=== PATIENT | female | born 1950 | race Caucasian/White ===

== ENCOUNTER 2021-10-12 14:57 | Emergency (ER) | payer MEDICARE, MEDICAID ==
[~2021-10-12] VITALS: Ht 165 cm; Wt 64.0 kg
[~2021-10-12 14:57] MED LIST: ALPR.25T; ALPR.5T; OXYC30TA76; WARF7.5T PO
[2021-10-12 15:05] VITALS: BP 179/97
--- NOTE | 2021-10-12 15:23 | ED Cough/URI ---
General Chief Complaint: Cough/Cold/Flu Symptoms Stated Complaint: COVID + 09/10, CONGESTION, SOB Source: patient Exam Limitations: no limitations History of Present Illness Date Seen by Provider: Oct 12, 2021 Time Seen by Provider: 15:06 Initial Comments Patient to ER by private conveyance with chief complaint that a little over a month ago 09/10/2021 she was diagnosed with COVID-19 at the walk-in clinic. She was not started on any monoclonal antibodies. Shows a pack-year history of smoking for over 40 years. She has been trying to slow down and is down to about half a pack a day. She has a lot of anxiety. She says she gets very wheezy and has a hard time breathing especially when she lays down at night. She denies swelling in her hands or feet. She denies heart disease. She was given an albuterol inhaler doxycycline and steroids 2 weeks later when she went to [facility] urgent care. No x-ray. She says she feels like she has some fluid in her lungs but cannot get it out. She does not have a productive cough. She is not having fevers or chills. She does not have a history of swollen legs or blood clots. Allergies and Home Medications Allergies Coded Allergies: No Known Allergies (Unverified Allergy, Mild, 05/05/09) Patient Home Medication List Home Medication List Reviewed: Yes Alprazolam (Xanax) 0.5 Mg Tablet, (Reported) Entered as Reported by: SUE LAI on 05/06/09 0125 Oxycodone Hcl (Oxycontin) 30 Mg Tab.sr.12h, (Reported) Entered as Reported by: HAJA ALLEN on 05/05/09 191 Warfarin Sod (Coumadin) 7.5 Mg Tablet, 1 EACH PO DAILY, (Reported) Entered as Reported by: KELBY RICHARDSON on 11/06/09 1549 Review of Systems Review of Systems Constitutional: No chills, No fever; malaise EENTM: No ear discharge, No ear pain Respiratory: cough; No phlegm; short of breath, wheezing Cardiovascular: No chest pain, No edema, No Hx of Intervention, No palpitations, No syncope Gastrointestinal: No abdominal pain, No constipation, No diarrhea, No nausea Genitourinary: No discharge, No dysuria Musculoskeletal: No back pain, No joint pain All Other Systems Reviewed Negative Unless Noted: Yes Past Sybeqqk-Qegssz-Smksmu Hx Patient Social History Tobacco Use?: Yes Tobacco type used: Cigarettes Smoking Status: Current Everyday Smoker Use of E-Cig and/or Vaping dev: No Substance use?: No Past Medical History Reproductive Disorders: No Physical Exam Vital Signs - First Documented 10/12/21 10/12/21 15:05 15:42 Temp 36.8 Pulse 100 Resp 20 B/P (MAP) 179/97 (124) Pulse Ox 99 O2 Delivery Room Air Capillary Refill : Height: '" Weight: lbs. oz. kg; BMI Method: General Appearance: WD/WN, mild distress Eyes: Bilateral Eye Normal Inspection, Bilateral Eye PERRL, Bilateral Eye EOMI HEENT: PERRL/EOMI, pharynx normal Neck: full range of motion, supple, normal inspection Respiratory: no accessory muscle use, respiratory distress (Oxygen saturations 94% on room air, nonlabored.); No accessory muscle use; rales (Mild bilateral lower), wheezing (Expiratory mild) Cardiovascular: normal peripheral pulses, regular rate, rhythm, tachycardia Gastrointestinal: normal bowel sounds, non tender, soft Extremities: non-tender, normal inspection, normal capillary refill Neurologic/Psychiatric: alert, normal mood/affect, oriented x 3 Skin: normal color, warm/dry Progress/Results/Core Measures Suspected Sepsis SIRS Temperature: Pulse: Respiratory Rate: Laboratory Tests 10/12/21 15:20: White Blood Count 9.7 Blood Pressure / Mean: Laboratory Tests 10/12/21 15:20: Creatinine 0.94, INR Comment 0.9, Platelet Count 251, Total Bilirubin 0.6 Results/Orders Lab Results Laboratory Tests Test 10/12/21 15:20 Range/Units White Blood Count 9.7 4.3-11.0 10^3/uL Red Blood Count 4.17 3.80-5.11 10^6/uL Hemoglobin 13.1 11.5-16.0 g/dL Hematocrit 38 35-52 % Mean Corpuscular Volume 90 80-99 fL Mean Corpuscular Hemoglobin 31 25-34 pg Mean Corpuscular Hemoglobin Concent 35 32-36 g/dL Red Cell Distribution Width 13.2 10.0-14.5 % Platelet Count 251 130-400 10^3/uL Mean Platelet Volume 10.4 9.0-12.2 fL Immature Granulocyte % (Auto) 1 % Neutrophils (%) (Auto) 43 42-75 % Lymphocytes (%) (Auto) 28 12-44 % Monocytes (%) (Auto) 6 0-12 % Eosinophils (%) (Auto) 22 H 0-10 % Basophils (%) (Auto) 1 0-10 % Neutrophils # (Auto) 4.2 1.8-7.8 10^3/uL Lymphocytes # (Auto) 2.7 1.0-4.0 10^3/uL Monocytes # (Auto) 0.6 0.0-1.0 10^3/uL Eosinophils # (Auto) 2.2 H 0.0-0.3 10^3/uL Basophils # (Auto) 0.1 0.0-0.1 10^3/uL Immature Granulocyte # (Auto) 0.1 0.0-0.1 10^3/uL Neutrophils % (Manual) 37 % Lymphocytes % (Manual) 32 % Monocytes % (Manual) 8 % Eosinophils % (Manual) 23 % Basophils % (Manual) 0 % Band Neutrophils 0 % Blood Morphology Comment NORMAL Prothrombin Time 12.9 12.2-14.7 SEC INR Comment 0.9 0.8-1.4 D-Dimer 0.51 H 0.00-0.49 UG/ML Sodium Level 143 135-145 MMOL/L Potassium Level 3.4 L 3.6-5.0 MMOL/L Chloride Level 107 98-107 MMOL/L Carbon Dioxide Level 22 21-32 MMOL/L Anion Gap 14 5-14 MMOL/L Blood Urea Nitrogen 6 L 7-18 MG/DL Creatinine 0.94 0.60-1.30 MG/DL Estimat Glomerular Filtration Rate 65 BUN/Creatinine Ratio 6 Glucose Level 172 H 70-105 MG/DL Calcium Level 8.9 8.5-10.1 MG/DL Corrected Calcium 8.7 8.5-10.1 MG/DL Total Bilirubin 0.6 0.1-1.0 MG/DL Aspartate Amino Transf (AST/SGOT) 28 5-34 U/L Alanine Aminotransferase (ALT/SGPT) 28 0-55 U/L Alkaline Phosphatase 66 40-136 U/L Troponin I < 0.028 <0.028 NG/ML C-Reactive Protein High Sensitivity 0.40 0.00-0.50 MG/DL B-Type Natriuretic Peptide 40.8 <100.0 PG/ML Total Protein 7.3 6.4-8.2 GM/DL Albumin 4.2 3.2-4.5 GM/DL My Orders Orders - JERRY COLEMAN Albuterol/Ipra Inhalation Soln (Duoneb I (10/12/21 15:30) Chest Pa/Lat (2 View) (10/12/21 15:17) Svn Small Volume Nebulizer (10/12/21 15:17) Cbc With Automated Diff (10/12/21 15:17) Comprehensive Metabolic Panel (10/12/21 15:17) Hs C Reactive Protein (10/12/21 15:17) Fibrin Degradation Products (10/12/21 15:17) Protime With Inr (10/12/21 15:17) Bnp Steph (10/12/21 15:23) Continuous Ekg Monitoring (10/12/21 15:23) Ekg Tracing (10/12/21 15:23) Troponin I Steph (10/12/21 15:23) Manual Differential (10/12/21 15:20) Medications Given in ED Current Medications Medications Dose Ordered Sig/Rachel Route Start Time Stop Time Status Last Admin Dose Admin Albuterol/ Ipratropium 3 ml ONCE ONCE INH 10/12/21 15:30 10/12/21 15:31 DC 10/12/21 15:42 3 ML Vital Signs/I&O 10/12/21 10/12/21 15:05 15:42 Temp 36.8 Pulse 100 Resp 20 B/P (MAP) 179/97 (124) Pulse Ox 99 O2 Delivery Room Air Capillary Refill : Progress Note : Time: 15:26 Progress Note D-dimer, troponin, EKG, two-view chest x-ray labs and CRP to rule out pneumonia blood clots or coronary disease. She is not having any chest pain. Probably she is having some post-COVID syndrome. She does have some wheezing so were going to trial a dose of DuoNeb and see if that helps better than albuterol. ECG Initial ECG Impression Date: Oct 12, 2021 Initial ECG Impression Time: 15:45 Initial ECG Rate: 87 Initial ECG Rhythm: Normal Sinus Initial ECG Intervals: Normal Initial ECG Impression: Normal Comment Normal sinus rhythm without clinically relevant ST changes. Diagnostic Imaging Diagonstic Imaging: Xray Plain Films/CT/US/NM/MRI: chest Comments [facility]. [place], [place] NAME: BARBIE AMEZCUA [facility] REC#: [id number] PT STATUS: REG ER : 1950 PHYSICIAN: JERRY COLEMAN MD ADMIT DATE: 10/12/21/ER Draft Date of Exam:10/12/21 CHEST PA/LAT (2 VIEW) Indication: Dyspnea with cough. Comparison: None. Discussion: Two views of the chest were obtained. Normal heart size. No consolidation, pleural fluid or pneumothorax. No osseous abnormality. Impression: Negative chest. Dictated on workstation # [id number] Dict: 10/12/21 1542 Trans: 10/12/21 1543 [facility] [phone] Interpreted by: JUNITO ORDAZ MD Electronically signed by: Reviewed: Reviewed by Me Departure Impression Primary Impression: Post-COVID syndrome Additional Impression: COPD exacerbation Disposition: 01 HOME, SELF-CARE Condition: Stable Departure-Patient Inst. Decision time for Depature: 17:21 Referrals: [facility] (PCP/Family) Primary Care Physician Patient Instructions: Exacerbation of COPD, Recovery After COVID-19 Add. Discharge Instructions: Your recent episode of COVID seems to have made your COPD worse. We are going to put you on some steroids and inhaler. Drink plenty of fluids. Take the steroid Dosepak as prescribed. 1 vial of DuoNeb in your nebulizer every 4 hours as needed for coughing fits, wheezing or shortness of air. Return to the ER for intractable shortness of air or other worrisome symptoms. All discharge instructions reviewed with patient and/or family. Voiced understanding. Scripts Ipratropium/Albuterol Sulfate (Iprat-Albut 0.5-3(2.5) mg/3 ml) 0.5 Mg-3 Mg (2.5 Mg Base)/3 Ml Ampul.neb 3 ML IH Q4H PRN for SHORTNESS OF BREATH, #90 EACH 0 Refills Prov: JERRY COLEMAN 10/12/21 Methylprednisolone (Methylprednisolone Dose Pack) 4 Mg Tab.ds.pk 4 MG PO UD for 6 Days, #21 PKG 0 Refills PER DOSE PACK INSTRUCTIONS Prov: JERRY COLEMAN 10/12/21 JERRY COLEMAN Oct 12, 2021 15:23
[2021-10-12 15:29] LABS: BASOPHILS # (AUTO) 0.1 10^3/uL (0.0-0.1); BASOPHILS % (AUTO) 1 % (0-10); EOSINOPHILS # (AUTO) 2.2 10^3/uL (0.0-0.3); EOSINOPHILS % (AUTO) 22 % (0-10); HEMATOCRIT 38 % (35-52); HEMOGLOBIN 13.1 g/dL (11.5-16.0); LYMPHOCYTES # (AUTO) 2.7 10^3/uL (1.0-4.0); LYMPHOCYTES % (AUTO) 28 % (12-44); MEAN CORPUSCULAR HEMOGLOBIN 31 pg (25-34); MEAN CORPUSCULAR HGB CONC 35 g/dL (32-36); MEAN CORPUSCULAR VOLUME 90 fL (80-99); MEAN PLATELET VOLUME 10.4 fL (9.0-12.2); MONOCYTES # (AUTO) 0.6 10^3/uL (0.0-1.0); MONOCYTES % (AUTO) 6 % (0-12); NEUTROPHILS # (AUTO) 4.2 10^3/uL (1.8-7.8); NEUTROPHILS % (AUTO) 43 % (42-75); PLATELET COUNT 251 10^3/uL (130-400); WHITE BLOOD COUNT 9.7 10^3/uL (4.3-11.0)
[2021-10-12] MEDS ORDERED: RT-ALBUTEROL/IPRATROPIUM 3 ML (DUONEB) VIAL INH ONE (15:30)
[2021-10-12 15:39] LABS: ALBUMIN 4.2 GM/DL (3.2-4.5); CHLORIDE 107 MMOL/L (98-107)
[2021-10-12 15:40] LABS: POTASSIUM 3.4 MMOL/L (3.6-5.0); SODIUM 143 MMOL/L (135-145)
[2021-10-12 15:41] LABS: CALCIUM 8.9 MG/DL (8.5-10.1)
[2021-10-12 15:42] LABS: GLUCOSE 172 MG/DL (70-105); TOTAL PROTEIN 7.3 GM/DL (6.4-8.2)
[2021-10-12 15:43] LABS: CARBON DIOXIDE 22 MMOL/L (21-32)
[2021-10-12 15:44] LABS: BILIRUBIN,TOTAL 0.6 MG/DL (0.1-1.0)
--- NOTE | 2021-10-12 15:44 | Diagnostic Imaging Report ---
Indication: Dyspnea with cough. Comparison: None. Discussion: Two views of the chest were obtained. Normal heart size. No consolidation, pleural fluid or pneumothorax. No osseous abnormality. Impression: Negative chest. Dictated by: Dictated on workstation # [id number]
[2021-10-12 15:46] LABS: ALKALINE PHOSPHATASE 66 U/L (40-136); CREATININE SERUM 0.94 MG/DL (0.60-1.30); GFR ESTIMATED 65
[2021-10-12 15:47] LABS: BUN/CREATININE RATIO 6
[2021-10-12 15:49] LABS: ALANINE AMINOTRANSFERASE 28 U/L (0-55)
[2021-10-12 16:04] LABS: BAND NEUTROPHILS 0 %; BASOPHILS % (MANUAL) 0 %; EOSINOPHILS % (MANUAL) 23 %; LYMPHOCYTES % (MANUAL) 32 %; MONOCYTES % (MANUAL) 8 %; NEUTROPHILS % (MANUAL) 37 %; RBC MORPH NORMAL
[2021-10-12 16:10] LABS: FIBRIN DEGRADATION PRODUCTS 0.51 UG/ML (0.00-0.49); INR 0.9 (0.8-1.4); PROTHROMBIN TIME PATIENT 12.9 SEC (12.2-14.7)
[2021-10-12] MEDS ORDERED: IPRA3AMP31 IH (17:28)
[2021-10-12] MEDS ORDERED: METH4TAB10 PO (17:28)
[2021-10-12] MEDS ORDERED: RX-IPRATROPIUM BROMIDE 0.5 MG/2.5 ML #3 (ATROVENT) IH STA (17:29)
[2021-10-12] MEDS ORDERED: RX-ALBUTEROL NEB 2.5 MG/3 ML PACK #5 IH STA (17:29)
[2021-10-12] MEDS ORDERED: methylPREDNISolone 40 MG/ML (DEPO MEDROL) VIAL IM ONE (17:30)
== END 2021-10-12 17:49 | disposition home or self-care (01) ==
LOC: EDUNIT# 14:57 → ER 15:00
DX: J44.1 Chronic obstructive pulmonary disease with (acute) exacerbation (principal); U09.9 Post COVID-19 condition, unspecified; F17.210 Nicotine dependence, cigarettes, uncomplicated
CPT/HCPCS: 36415; 71046; 80053; 83880; 84484; 85007; 85027; 85379; 85610; 86141; 93005; 94640

== ENCOUNTER 2021-11-19 23:19 | Emergency (ER) | payer MEDICARE, MEDICAID ==
[~2021-11-19 23:19] MED LIST changes: +IPRA3AMP31 IH; +METH4TAB10 PO
[2021-11-19 23:56] LABS: BASOPHILS # (AUTO) 0.1 10^3/uL (0.0-0.1); BASOPHILS % (AUTO) 1 % (0-10); EOSINOPHILS # (AUTO) 0.7 10^3/uL (0.0-0.3); EOSINOPHILS % (AUTO) 7 % (0-10); HEMATOCRIT 37 % (35-52); HEMOGLOBIN 12.8 g/dL (11.5-16.0); LYMPHOCYTES # (AUTO) 4.5 10^3/uL (1.0-4.0); LYMPHOCYTES % (AUTO) 43 % (12-44); MEAN CORPUSCULAR HEMOGLOBIN 31 pg (25-34); MEAN CORPUSCULAR HGB CONC 35 g/dL (32-36); MEAN CORPUSCULAR VOLUME 90 fL (80-99); MEAN PLATELET VOLUME 10.2 fL (9.0-12.2); MONOCYTES # (AUTO) 0.8 10^3/uL (0.0-1.0); MONOCYTES % (AUTO) 7 % (0-12); NEUTROPHILS # (AUTO) 4.4 10^3/uL (1.8-7.8); NEUTROPHILS % (AUTO) 42 % (42-75); PLATELET COUNT 298 10^3/uL (130-400); WHITE BLOOD COUNT 10.5 10^3/uL (4.3-11.0)
[2021-11-20 00:01] LABS: INR 0.9 (0.8-1.4); PROTHROMBIN TIME PATIENT 12.8 SEC (12.2-14.7)
[2021-11-20 00:11] LABS: ALBUMIN 4.3 GM/DL (3.2-4.5); BILIRUBIN,TOTAL 0.5 MG/DL (0.1-1.0); CALCIUM 9.3 MG/DL (8.5-10.1); CREATININE SERUM 0.9 MG/DL (0.60-1.30); MAGNESIUM 1.3 MG/DL (1.6-2.4); POTASSIUM 3.5 MMOL/L (3.6-5.0); TOTAL PROTEIN 7.3 GM/DL (6.4-8.2)
[2021-11-20] MEDS ORDERED: MAGNESIUM 1 GM/100 ML IVPB 100 ML IV ONE (01:15)
[2021-11-20] MEDS ORDERED: LIDOCAINE 2% VISCOUS 15 ML UDC PO ONE (02:00)
[2021-11-20] MEDS ORDERED: ASPIRIN 81 MG CHEW (CHILDREN'S ASA) PO ONE (02:00)
[2021-11-20] MEDS ORDERED: ANTACID SUSP 30 ML UDC (MYLANTA) PO ONE (02:00)
[2021-11-20] MEDS ORDERED: ONDANSETRON 4 MG/2 ML (SDV) Z0FRAN IVP ONE (02:00)
[2021-11-20] MEDS ORDERED: HydroCHLOROthiazide CAP/TABLET 12.5 MG TAB PO STA (05:25)
[2021-11-20] MEDS ORDERED: lisINopril 10 MG (PRINIVIL) TABLET PO STA (05:25)
[2021-11-20] MEDS ORDERED: LISI1TAB44 PO (05:30)
--- NOTE | 2021-11-20 05:31 | ED Chest Pain ---
General Chief Complaint: Chest Pain Stated Complaint: CP,BACK PX Nursing Triage Note: TO ED VIA POV AND AMBULATORY TO ROOM 8 WITH C/O CP THAT RADIATES TO BACK STARTING APPROX 30 MIN CREAM TESTER. Source: patient Exam Limitations: no limitations History of Present Illness Date Seen by Provider: Nov 20, 2021 Allergies and Home Medications Allergies Coded Allergies: No Known Allergies (Unverified Allergy, Mild, 05/05/09) Patient Home Medication List Alprazolam (Xanax) 0.5 Mg Tablet, (Reported) Entered as Reported by: SUE LAI on 05/06/09 0125 Ipratropium/Albuterol Sulfate (Iprat-Albut 0.5-3(2.5) mg/3 ml) 0.5 Mg-3 Mg (2.5 Mg Base)/3 Ml Ampul.neb, 3 ML IH Q4H PRN for SHORTNESS OF BREATH Prescribed by: JERRY COLEMAN on 10/12/21 1728 Lisinopril/Hydrochlorothiazide (Lisinopril-Hctz 10-12.5 mg Tab) 10 Mg-12.5 Mg Tablet, 1 EACH PO DAILY Prescribed by: SOFIE CORRAL on 11/20/21 0530 Methylprednisolone (Methylprednisolone Dose Pack) 4 Mg Tab.ds.pk, 4 MG PO UD Prescribed by: JERRY COLEMAN on 10/12/21 1728 Oxycodone Hcl (Oxycontin) 30 Mg Tab.sr.12h, (Reported) Entered as Reported by: HAJA ALLEN on 05/05/09 1919 Warfarin Sod (Coumadin) 7.5 Mg Tablet, 1 EACH PO DAILY, (Reported) Entered as Reported by: KELBY RICHARDSON on 11/06/09 1549 Past Amfqzcm-Cycjqc-Jgytty Hx Patient Social History Smoking Status: Former Smoker Substance use?: No Alcohol Use?: No Past Medical History Surgery/Hospitalization HX: ANXIETY, SEASONAL ALLERGIES, CHRONIC BACK PAIN JACLYN Reproductive Disorders: No Physical Exam Vital Signs Vital Signs - First Documented 11/19/21 23:30 Temp 36.6 Pulse 106 Resp 18 B/P (MAP) 168/97 (120) Pulse Ox 94 O2 Delivery Room Air Capillary Refill : Less Than 3 Seconds Height, Weight, BMI Height: '" Weight: lbs. oz. kg; 23.00 BMI Method: Progress/Results/Core Measures Results/Orders Lab Results Laboratory Tests Test 11/19/21 23:54 11/20/21 04:15 Range/Units White Blood Count 10.5 4.3-11.0 10^3/uL Red Blood Count 4.09 3.80-5.11 10^6/uL Hemoglobin 12.8 11.5-16.0 g/dL Hematocrit 37 35-52 % Mean Corpuscular Volume 90 80-99 fL Mean Corpuscular Hemoglobin 31 25-34 pg Mean Corpuscular Hemoglobin Concent 35 32-36 g/dL Red Cell Distribution Width 12.8 10.0-14.5 % Platelet Count 298 130-400 10^3/uL Mean Platelet Volume 10.2 9.0-12.2 fL Immature Granulocyte % (Auto) 1 % Neutrophils (%) (Auto) 42 42-75 % Lymphocytes (%) (Auto) 43 12-44 % Monocytes (%) (Auto) 7 0-12 % Eosinophils (%) (Auto) 7 0-10 % Basophils (%) (Auto) 1 0-10 % Neutrophils # (Auto) 4.4 1.8-7.8 10^3/uL Lymphocytes # (Auto) 4.5 H 1.0-4.0 10^3/uL Monocytes # (Auto) 0.8 0.0-1.0 10^3/uL Eosinophils # (Auto) 0.7 H 0.0-0.3 10^3/uL Basophils # (Auto) 0.1 0.0-0.1 10^3/uL Immature Granulocyte # (Auto) 0.1 0.0-0.1 10^3/uL Prothrombin Time 12.8 12.2-14.7 SEC INR Comment 0.9 0.8-1.4 Activated Partial Thromboplast Time 29 24-35 SEC Sodium Level 142 135-145 MMOL/L Potassium Level 3.5 L 3.6-5.0 MMOL/L Chloride Level 104 98-107 MMOL/L Carbon Dioxide Level 23 21-32 MMOL/L Anion Gap 15 H 5-14 MMOL/L Blood Urea Nitrogen 10 7-18 MG/DL Creatinine 0.90 0.60-1.30 MG/DL Estimat Glomerular Filtration Rate 68 BUN/Creatinine Ratio 11 Glucose Level 145 H 70-105 MG/DL Calcium Level 9.3 8.5-10.1 MG/DL Corrected Calcium 9.1 8.5-10.1 MG/DL Magnesium Level 1.3 L 1.6-2.4 MG/DL Total Bilirubin 0.5 0.1-1.0 MG/DL Aspartate Amino Transf (AST/SGOT) 36 H 5-34 U/L Alanine Aminotransferase (ALT/SGPT) 48 0-55 U/L Alkaline Phosphatase 66 40-136 U/L Myoglobin 46.4 10.0-92.0 NG/ML Troponin I < 0.028 < 0.028 <0.028 NG/ML Total Protein 7.3 6.4-8.2 GM/DL Albumin 4.3 3.2-4.5 GM/DL My Orders Orders - SOFIE HARKINS MD Ekg Tracing (11/19/21 23:30) Cbc With Automated Diff (11/19/21 23:50) Magnesium (11/19/21 23:50) Chest 1 View, Ap/Pa Only (11/19/21 23:50) Ekg Tracing (11/19/21 23:50) Comprehensive Metabolic Panel (11/19/21 23:50) Myoglobin Serum (11/19/21 23:50) Protime With Inr (11/19/21 23:50) Partial Thromboplastin Time (11/19/21 23:50) O2 (11/19/21 23:50) Monitor-Rhythm Ecg Trace Only (11/19/21 23:50) Ed Iv/Invasive Line Start (11/19/21 23:50) Troponin I Steph (11/19/21 23:50) Magnesium 1 Gm/100 Ml Ivpb (Magnesium Marshall (11/20/21 01:15) Troponin I Dubois (11/20/21 02:50) Ondansetron Injection (Zofran Injectio (11/20/21 02:00) Lidocaine 2% Viscous 15 Ml (Xylocaine Vi (11/20/21 02:00) Antacid Suspension (Mylanta Suspension (11/20/21 02:00) Aspirin Chewable Tablet (Baby Aspirin Ch (11/20/21 02:00) Lisinopril Tablet (Zestril Tablet) (11/20/21 05:25) Hydrochlorothiazide Cap/Tablet (Hctz Cap (11/20/21 05:25) Medications Given in ED Current Medications Medications Dose Ordered Sig/Rachel Route Start Time Stop Time Status Last Admin Dose Admin Al Hydrox/Mg Hydrox/Simethicone 30 ml ONCE ONCE PO 11/20/21 02:00 11/20/21 02:01 DC 11/20/21 02:26 30 ML Aspirin 324 mg ONCE ONCE PO 11/20/21 02:00 11/20/21 02:01 DC 11/20/21 02:18 324 MG Lidocaine HCl 15 ml ONCE ONCE PO 11/20/21 02:00 11/20/21 02:01 DC 11/20/21 02:26 15 ML Magnesium Sulfate/ Dextrose 100 ml @ 100 mls/hr ONCE ONCE IV 11/20/21 01:15 11/20/21 02:14 DC 11/20/21 02:22 100 MLS/HR Ondansetron HCl 8 mg ONCE ONCE IVP 11/20/21 02:00 11/20/21 02:01 DC 11/20/21 02:18 8 MG Vital Signs/I&O 11/19/21 11/20/21 23:30 05:45 Temp 36.6 36.6 Pulse 106 95 Resp 18 16 B/P (MAP) 168/97 (120) 183/104 Pulse Ox 94 96 O2 Delivery Room Air Room Air Blood Pressure Mean: 120 Initial ECG Impression Date: Nov 19, 2021 Initial ECG Impression Time: 23:50 Initial ECG Rate: 100 Initial ECG Rhythm: S.Tach Comment Slight sinus tachycardia with no ST elevation or depression. No abnormal intervals or axis deviation. Departure Impression Primary Impression: Atypical chest pain Additional Impression: Hypertension Qualified Codes: I10 - Essential (primary) hypertension Disposition: 01 HOME, SELF-CARE Condition: Improved Departure-Patient Inst. Decision time for Depature: 05:28 Referrals: [facility] (PCP/Family) Primary Care Physician Patient Instructions: Acid Reflux and Gastroesophageal Reflux Disease in Adults, Chest Pain, High Blood Pressure ED Add. Discharge Instructions: Follow-up with your primary care provider soon as possible. Please call to make an appointment. Additionally, please try to stop in your primary care office this afternoon for a blood pressure check. Start your prescription for lisinopril/hydrochlorothiazide on Wednesday. For acid reflux that may be contributing to your chest pain, resume taking omeprazole 20 mg twice daily for at least the next 2 weeks. Avoid the following: Eating large meals, eating close to bedtime, caffeine, carbonation, citrus fruits and juices, tomato products, spicy foods, alcohol, tobacco, mints, NSAID medications such as ibuprofen or naproxen, excessively fa tty or greasy foods, or anything else you know irritates your stomach. Return to the ER if you have worsening symptoms despite following these instructions. All discharge instructions reviewed with patient and/or family. Voiced understanding. Scripts Lisinopril/Hydrochlorothiazide (Lisinopril-Hctz 10-12.5 mg Tab) 10 Mg-12.5 Mg Tablet 1 EACH PO DAILY, #30 TAB Start November 21. Take early in the day. Prov: SOFIE HARKINS MD 11/20/21 Copy Copies To 1: BOOGIE CARABALLO JOSHUA T MD Nov 20, 2021 05:31
[2021-11-20 05:45] VITALS: BP 183/104
--- NOTE | 2021-11-20 06:54 | Diagnostic Imaging Report ---
INDICATION: Chest pain. COMPARISON: 10/12/2021 FINDINGS: There is marked prominence demonstrated of the upper aspect of the mediastinal contours. This is similar to the prior exam. There appear to be chronic pulmonary interstitial changes. There is no large effusion. There is no pneumothorax. There is no alveolar consolidation. There are no current findings of edema or failure. IMPRESSION: 1. Prominent mediastinal contours which appear secondary to the thoracic aorta. While this is not significantly changed from the comparison examination, there are no prior CT images available. If not previously performed consider assessment of the great vessels with CTA of the chest. 2. No acute cardiopulmonary process is evident. Dictated by: Dictated on workstation # [id number]
== END 2021-11-20 05:45 | disposition home or self-care (01) ==
LOC: EDUNIT# 23:19 → ER 23:21
DX: I10 Essential (primary) hypertension (principal); Z87.891 Personal history of nicotine dependence; Z79.899 Other long term (current) drug therapy; Z28.310 Unvaccinated for COVID-19
CPT/HCPCS: 36415; 71045; 80053; 83735; 83874; 84484; 85025; 85610; 85730; 93005

== ENCOUNTER → 2021-12-16 | Outpatient (CLI) | payer MEDICARE, MEDICAID ==
[~2021-12-16] MED LIST changes: +LISI1TAB44 PO
== END ==
LOC: CARD 09:31
PROVIDERS: ATTEND Internal Medicine Cardiovascular Disease
DX: I35.1 Nonrheumatic aortic (valve) insufficiency (principal); I35.8 Other nonrheumatic aortic valve disorders; I51.7 Cardiomegaly
CPT/HCPCS: 93306

== ENCOUNTER → 2021-12-25 | Outpatient (CLI) | payer MEDICARE, MEDICAID ==
[~2021-12-25] VITALS: Ht 167 cm; Wt 65.0 kg
[~2021-12-25] MED LIST changes: +CATHETER FLUSH 10 ML SYR IVP PRN
[2021-12-25 09:20] VITALS: BP 141/90
--- NOTE | 2021-12-26 08:43 | NUCLEAR STRESS TEST ---
TREADMILL NUCLEAR STRESS TEST Date of procedure: 12/25/2021. Primary care provider: [facility]. Admitting physician: Tim Asif Jr., MD. INDICATION: Abnormal electrocardiogram. BASELINE ELECTROCARDIOGRAM: Sinus rhythm with nonspecific intraventricular conduction delay. STRESS TEST PROCEDURE: The patient was exercised for a total of 3 minutes and 31 seconds of the standard Fabian protocol achieving a maximum MET level of 4.7. The resting heart rate was 85 bpm and the peak heart rate was 136 bpm, which represents 91% of the maximum predicted heart rate. The resting blood pressure was 141/90 mmHg and the peak blood pressure was 184/89 mmHg. This represents a normal heart rate and a normal blood pressure response to exercise. The test was stopped due to target heart rate attained. There was no chest discomfort during the test. There were no arrhythmias during the test. There was approximately [address] depression in the inferolateral leads during stress that improved in recovery. The patient exhibited good exercise capacity for age. NUCLEAR PROCEDURE: The patient was administered 10.4 mCi of intravenous technetium 99m Tetrofosmin at rest for the rest images. The patient was subsequently administered 30.6 mCi of intravenous technetium 99 M Tetrofosmin at peak stress for the stress images. Following an appropriate wait after each injection, imaging was obtained. The images were subsequently processed and reformatted in the usual views. Gated imaging was obtained. The image quality was adequate with a mild degree of gastrointestinal attenuation artifact. CT attenuation correction was used as a adjunct to standard imaging. Both the corrected and uncorrected images were reviewed for interpretation. NUCLEAR RESULTS: There was normal myocardial perfusion in all segments without evidence of infarction or ischemia. There was normal left ventricular chamber size with an end-diastolic volume of 45 mL and an end-systolic volume of 12 mL. There was no evidence of transient ischemic dilatation. The TID ratio was 1.08. There was normal wall motion in all segments with a calculated ejection fraction of 73%. IMPRESSION: 1. Normal heart rate and blood pressure response to exercise. 2. There was no chest discomfort or arrhythmias during the test. 3. There were borderline exercise-induced electrocardiogram changes that improved in recovery. 4. The patient exhibited good exercise capacity for age at 3 minutes and 31 seconds of the Fabian protocol. 5. There was normal myocardial perfusion in all segments without evidence of infarction or ischemia. 6. There was normal wall motion in all segments with a calculated ejection fraction of 73%. Certain portions of this document may have been dictated utilizing voice recognition technology. Inherent to this technology, typographical and grammatical errors may exist. As much as I am diligent to identify and correct these mistakes, some errors may remain in the document. TIM ASIF JR, MD Dec 26, 2021 08:43
== END ==
LOC: CARD 07:39
PROVIDERS: ATTEND Internal Medicine Cardiovascular Disease
DX: R94.31 Abnormal electrocardiogram [ECG] [EKG] (principal)
CPT/HCPCS: 78452; 93017

== ENCOUNTER 2022-02-05 18:53 | Emergency (ER) | payer MEDICARE, MEDICAID ==
[~2022-02-05] VITALS: Ht 165 cm; Wt 65.0 kg
[~2022-02-05 18:53] MED LIST changes: -CATHETER FLUSH 10 ML SYR IVP PRN
--- NOTE | 2022-02-05 19:34 | ED Abdominal Pain ---
General Chief Complaint: Abdominal/GI Problems Stated Complaint: UPPER ABD PAIN,NAUSEA Nursing Triage Note: right upper abdominal pain since september, worse x4-5 days. (MARILOU FUNES APRN) History of Present Illness Date Seen by Provider: Feb 05, 2022 Time Seen by Provider: 19:26 Initial Comments Patient reports right upper quadrant abdominal pain that has been worsening since September but worse the past 4-5 days. Has recently been restarted on Carafate for the past 5 days. States that she was worked up in the past for cardiac issues and that was all negative. Was also started on blood pressure medication at that time. Denies vomiting. Denies chest pain or shortness of breath. Was told that she would be referred to GI at the beginning of next year. Timing/Duration: Constant Severity/Quality: Moderate Location: RUQ, Epigastric Radiation: No Radiation Activities at Onset: None Modifying Factors: Improves With Antacids; Worsens With Eating; Improves With Resting Associated Symptoms: No Chest Pain, No Fever/Chills, No Fatigue, No Headache; Heartburn, Nausea/Vomiting; No Rash, No Shortness of Air (MARILOU FUNES APRN) Allergies and Home Medications Allergies Coded Allergies: NKANo Known Allergies (Unverified Allergy, Mild, 05/05/09) Patient Home Medication List Home Medication List Reviewed: Yes (MARILOU FUNES APRN) Alprazolam (Xanax) 0.5 Mg Tablet, (Reported) Entered as Reported by: SUE LAI on 05/06/09 0125 Ipratropium/Albuterol Sulfate (Iprat-Albut 0.5-3(2.5) mg/3 ml) 0.5 Mg-3 Mg (2.5 Mg Base)/3 Ml Ampul.neb, 3 ML IH Q4H PRN for SHORTNESS OF BREATH Prescribed by: JERRY COLEMAN on 10/12/21 1728 Lisinopril/Hydrochlorothiazide (Lisinopril-Hctz 10-12.5 mg Tab) 10 Mg-12.5 Mg Tablet, 1 EACH PO DAILY Prescribed by: SOFIE CORRAL on 11/20/21 0530 Methylprednisolone (Methylprednisolone Dose Pack) 4 Mg Tab.ds.pk, 4 MG PO UD Prescribed by: JERRY COLEMAN on 10/12/21 1728 Oxycodone Hcl (Oxycontin) 30 Mg Tab.sr.12h, (Reported) Entered as Reported by: HAJA ALLEN on 05/05/09 191 Pantoprazole Sodium (Protonix) 20 Mg Tablet.dr, 20 MG PO BID Prescribed by: Marilou Funes on 02/05/222114 Warfarin Sod (Coumadin) 7.5 Mg Tablet, 1 EACH PO DAILY, (Reported) Entered as Reported by: KELBY RICHARDSON on 11/06/09 1549 Review of Systems Review of Systems Constitutional: No chills, No diaphoresis, No dizziness, No fever EENTM: No Symptoms Reported Respiratory: No Symptoms Reported Cardiovascular: No Symptoms Reported Gastrointestinal: Abdominal Pain (right upper quadrant intermittently); Denies Diarrhea; Nausea; Denies Vomiting Genitourinary: No Symptoms Reported Musculoskeletal: no symptoms reported Skin: no symptoms reported Psychiatric/Neurological: No Symptoms Reported (MARILOU FUNES APRN) All Other Systems Reviewed Negative Unless Noted: Yes (MARILOU FUNES APRN) Past Kkytjxs-Vequyd-Mlgbmy Hx Patient Social History Tobacco Use?: No Smoking Status: Former Smoker Substance use?: No Alcohol Use?: No Pt feels they are or have been: No (MARILOU FUNES APRN) Immunizations Up To Date First/Initial COVID19 Vaccinat: x2 (MARILOU FUNES APRN) Past Medical History Surgery/Hospitalization HX: ANXIETY, SEASONAL ALLERGIES, CHRONIC BACK PAIN, htn JACLYN Surgeries: Yes Gallbladder Respiratory: No Cardiac: Yes Hypertension Neurological: No Reproductive Disorders: No Genitourinary: No Gastrointestinal: No Chronic Back Pain Endocrine: No HEENT: No Cancer: No Psychosocial: No Integumentary: No (MARILOU FUNES APRN) Family Medical History Reviewed Nursing Family Hx (MARILOU FUNES APRN) Physical Exam Vital Signs Vital Signs - First Documented 02/05/22 19:03 Temp 36.7 Pulse 114 Resp 16 B/P (MAP) 141/98 (112) Pulse Ox 98 O2 Delivery Room Air (SOFIE TORO MD) Vital Signs Capillary Refill : Less Than 3 Seconds (MARILOU FUNES APRN) Height/Weight/BMI Height: '" Weight: lbs. oz. kg; 23.00 BMI Method: General Appearance: WD/WN, no apparent distress Neck: non-tender, full range of motion Respiratory: chest non-tender, lungs clear, normal breath sounds, no respira tory distress, no accessory muscle use Cardiovascular: regular rate, rhythm, no edema Gastrointestinal: normal bowel sounds, soft, no organomegaly, no pulsatile mass, tenderness (epigastric and right upper quadrant) Extremities: normal range of motion, non-tender Neurologic/Psychiatric: alert, normal mood/affect, oriented x 3 Skin: normal color, warm/dry (MARILOU FUNES E PARATRANSIT DRIVER) Progress/Results/Core Measures Results/Orders Lab Results Laboratory Tests Test 02/05/22 19:08 Range/Units White Blood Count 12.5 H 4.3-11.0 10^3/uL Red Blood Count 4.03 3.80-5.11 10^6/uL Hemoglobin 11.9 11.5-16.0 g/dL Hematocrit 35 35-52 % Mean Corpuscular Volume 88 80-99 fL Mean Corpuscular Hemoglobin 30 25-34 pg Mean Corpuscular Hemoglobin Concent 34 32-36 g/dL Red Cell Distribution Width 12.7 10.0-14.5 % Platelet Count 361 130-400 10^3/uL Mean Platelet Volume 9.7 9.0-12.2 fL Immature Granulocyte % (Auto) 1 % Neutrophils (%) (Auto) 57 42-75 % Lymphocytes (%) (Auto) 31 12-44 % Monocytes (%) (Auto) 7 0-12 % Eosinophils (%) (Auto) 3 0-10 % Basophils (%) (Auto) 1 0-10 % Neutrophils # (Auto) 7.2 1.8-7.8 10^3/uL Lymphocytes # (Auto) 3.9 1.0-4.0 10^3/uL Monocytes # (Auto) 0.9 0.0-1.0 10^3/uL Eosinophils # (Auto) 0.4 H 0.0-0.3 10^3/uL Basophils # (Auto) 0.1 0.0-0.1 10^3/uL Immature Granulocyte # (Auto) 0.1 0.0-0.1 10^3/uL Sodium Level 134 L 135-145 MMOL/L Potassium Level 3.8 3.6-5.0 MMOL/L Chloride Level 96 L 98-107 MMOL/L Carbon Dioxide Level 23 21-32 MMOL/L Anion Gap 15 H 5-14 MMOL/L Blood Urea Nitrogen 15 7-18 MG/DL Creatinine 0.90 0.60-1.30 MG/DL Estimat Glomerular Filtration Rate 68 BUN/Creatinine Ratio 17 Glucose Level 233 H 70-105 MG/DL Calcium Level 10.3 H 8.5-10.1 MG/DL Corrected Calcium 10.1 8.5-10.1 MG/DL Total Bilirubin 0.3 0.1-1.0 MG/DL Aspartate Amino Transf (AST/SGOT) 26 5-34 U/L Alanine Aminotransferase (ALT/SGPT) 32 0-55 U/L Alkaline Phosphatase 102 40-136 U/L Total Protein 8.6 H 6.4-8.2 GM/DL Albumin 4.2 3.2-4.5 GM/DL Lipase 55 8-78 U/L (SOFIE TORO MD) Vital Signs/I&O 02/05/22 02/05/22 19:03 21:18 Temp 36.7 36.5 Pulse 114 99 Resp 16 16 B/P (MAP) 141/98 (112) 152/88 Pulse Ox 98 99 O2 Delivery Room Air Room Air (SOFIE TORO MD) Blood Pressure Mean: 112 Progress Progress Note : Progress Note Patient presents to the ER today for ongoing abdominal pain for the past several months. Has been worked up from cardiac standpoint and was told that everything looked ok. Thinks that she possibly had a CT done. Will review chart for CT and obtain labs. If no CT scan was obtained will order scan. 2019: Patient went to CT scan and told me that her epigastric pain is resolved at this time after taking the GI cocktail. 2100: Extensive discussion had with patient in regards to results of CT scan. I also discussed this with Dr. Toro in regards to CT scan findings regarding aneurysm. Recommended that we contact vascular surgeon to touch base and make sure that nothing needs done tonight. I discussed this at length with patient and she adamantly refused to have this done tonight. "I will just follow up with them myself. I am only concerned about my stomach issues at this time." Has been on blood pressure medications since prior ER visit. " I just want to get out of here and eat a Big Mac. I am hungry now that the pain is gone." Again, she refused to have vascular surgery or CV surgery contacted [facility] in regards to aneurysm since she is pain from GI cocktail. I still instructed on the importance of close follow up for further evaluation and treatment of aneurysm. She is very aware that this aneurysm could rupture which could lead to . She verbalized understanding of her risks of leaving tonight. Also discussed with her that she likely needs to see GI doctor for likely scope. She verbalized understanding. Reasons to return to the ER were discussed with patient in addition and she agreed. (MARILOU FUNES APRN) Diagnostic Imaging Diagonstic Imaging: CT Plain Films/CT/US/NM/MRI: abdomen, pelvis Comments NAME: BARBIE AMEZCUA [facility] REC#: [id number] PT STATUS: REG ER : 1950 PHYSICIAN: MARILOU FUNES APRN ADMIT DATE: 02/05/22/ER Draft Date of Exam:02/05/22 CT ABDOMEN/PELVIS W PROCEDURE: CT abdomen and pelvis with contrast. TECHNIQUE: Multiple contiguous axial images were obtained through the abdomen and pelvis after administration of intravenous contrast. Auto Exposure Controls were utilized during the CT exam to meet ALARA standards for radiation dose reduction. All CT scans use one or more of the following dose optimizing techniques: automated exposure control, MA and/or KvP adjustment based on patient size and exam type or iterative reconstruction. INDICATION: Right upper quadrant abdominal pain. Pain since September. Worsening pain in the past 5 days. COMPARISON: No comparison available. FINDINGS: The lung bases demonstrate no finding of pneumonia or edema. There is no pleural or pericardial effusion. The liver demonstrates no evidence of a focal intrahepatic abnormality. The patient is status post cholecystectomy. There is minimal expected post cholecystectomy biliary prominence. There is no radiodense stone evident within the common bile duct. The common bile duct is normal in caliber. The biliary prominence is within the proximal intrahepatic biliary radicles. Pancreas is normal. The spleen is normal in size. There is no adrenal mass. The kidneys enhance normally and are nonobstructed. There is no finding of bowel dilation or evidence of abnormal bowel thickening. There is no evidence of appendicitis. Appendix is well-visualized and is normal. There is diverticulosis of the sigmoid colon without evidence of diverticulitis. There is a calcified fibroid within the uterus. The bladder is unremarkable. There is no free air, free fluid or evidence of an abscess. There is atherosclerotic plaquing within the abdominal aorta. There is an aneurysm demonstrated of the distal thoracic aorta which at the level of the diaphragms measures up to 5.2 x 5.0 cm. There is thrombus and plaquing within the aneurysm but no adjacent fluid or finding of rupture. The spine demonstrate background degenerative features without acute abnormality. IMPRESSION: 1. There is a descending thoracic aortic aneurysm with maximum diameter measured at the level of the diaphragms measuring 5.2 x 5.0 cm. There is some intramural plaquing present within the aorta but no finding of perianeurysmal stranding or fluid. This maximal aneurysmal dilation of the distal thoracic aorta gradually tapers into the abdominal aorta which demonstrates proximal dilation with the aorta measuring 3.7 cm at the level of the celiac and 2.6 cm at the level of the renal vasculature. 2. No acute inflammatory or obstructive process within the abdomen or pelvis. 3. Prior cholecystectomy with mild expected postcholecystectomy intrahepatic biliary prominence. 4. Uncomplicated diverticulosis. 5. Calcified uterine fibroid. Dictated on workstation # [id number] Dict: 02/05/222023 Trans: 02/05/222033 [facility] [id number] Interpreted by: GAURI LIANG MD Electronically signed by: (MARILOU FUNES APRN) Departure Impression Primary Impression: Abdominal pain Qualified Codes: R10.11 - Right upper quadrant pain Additional Impressions: Abdominal aortic aneurysm Qualified Codes: I71.40 - Abdominal aortic aneurysm, without rupture, unspecified Acid indigestion Disposition: 01 HOME, SELF-CARE Condition: Stable Departure-Patient Inst. Decision time for Depature: 21:13 (MARILOU FUNES APRN) Referrals: [facility] (PCP/Family) Primary Care Physician Patient Instructions: Aortic Aneurysm (DC) Add. Discharge Instructions: 1. You need to follow up with your PCP in the AM along with Registered Respiratory Technician. You also need to see a cardiovascular surgeon. 2. Continue medications as directed. 3. Protonix as directed. 4. Return here if worse or concerns. All discharge instructions reviewed with patient and/or family. Voiced understanding. Scripts Pantoprazole Sodium (Protonix) 20 Mg Tablet. 20 MG PO BID, #60 TAB Prov: MARILOU FUNES APRN 02/05/22 ATTENDING PHYSICIAN NOTE: I was physically present as attending physician in the emergency department during the care of this patient. I did not personally interview or examine this patient. I did provide consultation to Dee Dee Funes regarding the aneurysm finding. I advised phone consultation with a cardiovascular surgeon. Patient declined the consultation as she was pain-free after GI cocktail. Patient was advised that she may be leaving the emergency room with a very dangerous and possibly life-threatening condition. She expressed understanding to Dee Dee but elected to leave without further evaluation. I also advised tight control of blood pressure. See discharge instructions above. Patient left before I could visit with her personally. (SOFIE TORO MD) Copy Copies To 1: [facility] [place]ies To 2: JUNITO MARQUES JR, MD BURGHART, MARGARET E APRN Feb 05, 2022 19:34 SOFIE TORO MD Feb 07, 2022 09:29
[2022-02-05 19:41] LABS: BASOPHILS # (AUTO) 0.1 10^3/uL (0.0-0.1); BASOPHILS % (AUTO) 1 % (0-10); EOSINOPHILS # (AUTO) 0.4 10^3/uL (0.0-0.3); EOSINOPHILS % (AUTO) 3 % (0-10); HEMATOCRIT 35 % (35-52); HEMOGLOBIN 11.9 g/dL (11.5-16.0); LYMPHOCYTES # (AUTO) 3.9 10^3/uL (1.0-4.0); LYMPHOCYTES % (AUTO) 31 % (12-44); MEAN CORPUSCULAR HEMOGLOBIN 30 pg (25-34); MEAN CORPUSCULAR HGB CONC 34 g/dL (32-36); MEAN CORPUSCULAR VOLUME 88 fL (80-99); MEAN PLATELET VOLUME 9.7 fL (9.0-12.2); MONOCYTES # (AUTO) 0.9 10^3/uL (0.0-1.0); MONOCYTES % (AUTO) 7 % (0-12); NEUTROPHILS # (AUTO) 7.2 10^3/uL (1.8-7.8); NEUTROPHILS % (AUTO) 57 % (42-75); PLATELET COUNT 361 10^3/uL (130-400); WHITE BLOOD COUNT 12.5 10^3/uL (4.3-11.0)
[2022-02-05] MEDS ORDERED: LIDOCAINE 2% VISCOUS 15 ML UDC PO ONE (19:45)
[2022-02-05] MEDS ORDERED: ANTACID SUSP 30 ML UDC (MYLANTA) PO ONE (19:45)
[2022-02-05 19:58] LABS: ALBUMIN 4.2 GM/DL (3.2-4.5); BILIRUBIN,TOTAL 0.3 MG/DL (0.1-1.0); CALCIUM 10.3 MG/DL (8.5-10.1); CREATININE SERUM 0.9 MG/DL (0.60-1.30); POTASSIUM 3.8 MMOL/L (3.6-5.0); TOTAL PROTEIN 8.6 GM/DL (6.4-8.2)
[2022-02-05] MEDS ORDERED: IOHEXOL 350 MG/ML 100 ML (OMNIPAQUE 350) VIAL IV ONE (20:15)
[2022-02-05] MEDS ORDERED: HOLD METFORMIN - RECEIVED CONTRAST 20 ML VIAL IV SCH (20:15)
[2022-02-05] MEDS ORDERED: NS 100 ML (IVPB) BAG IV ONE (20:15)
--- NOTE | 2022-02-05 20:35 | Diagnostic Imaging Report ---
PROCEDURE: CT abdomen and pelvis with contrast. TECHNIQUE: Multiple contiguous axial images were obtained through the abdomen and pelvis after administration of intravenous contrast. Auto Exposure Controls were utilized during the CT exam to meet ALARA standards for radiation dose reduction. All CT scans use one or more of the following dose optimizing techniques: automated exposure control, MA and/or KvP adjustment based on patient size and exam type or iterative reconstruction. INDICATION: Right upper quadrant abdominal pain. Pain since September. Worsening pain in the past 5 days. COMPARISON: No comparison available. FINDINGS: The lung bases demonstrate no finding of pneumonia or edema. There is no pleural or pericardial effusion. The liver demonstrates no evidence of a focal intrahepatic abnormality. The patient is status post cholecystectomy. There is minimal expected post cholecystectomy biliary prominence. There is no radiodense stone evident within the common bile duct. The common bile duct is normal in caliber. The biliary prominence is within the proximal intrahepatic biliary radicles. Pancreas is normal. The spleen is normal in size. There is no adrenal mass. The kidneys enhance normally and are nonobstructed. There is no finding of bowel dilation or evidence of abnormal bowel thickening. There is no evidence of appendicitis. Appendix is well-visualized and is normal. There is diverticulosis of the sigmoid colon without evidence of diverticulitis. There is a calcified fibroid within the uterus. The bladder is unremarkable. There is no free air, free fluid or evidence of an abscess. There is atherosclerotic plaquing within the abdominal aorta. There is an aneurysm demonstrated of the distal thoracic aorta which at the level of the diaphragms measures up to 5.2 x 5.0 cm. There is thrombus and plaquing within the aneurysm but no adjacent fluid or finding of rupture. The spine demonstrate background degenerative features without acute abnormality. IMPRESSION: 1. There is a descending thoracic aortic aneurysm with maximum diameter measured at the level of the diaphragms measuring 5.2 x 5.0 cm. There is some intramural plaquing present within the aorta but no finding of perianeurysmal stranding or fluid. This maximal aneurysmal dilation of the distal thoracic aorta gradually tapers into the abdominal aorta which demonstrates proximal dilation with the aorta measuring 3.7 cm at the level of the celiac and 2.6 cm at the level of the renal vasculature. 2. No acute inflammatory or obstructive process within the abdomen or pelvis. 3. Prior cholecystectomy with mild expected postcholecystectomy intrahepatic biliary prominence. 4. Uncomplicated diverticulosis. 5. Calcified uterine fibroid. Dictated by: Dictated on workstation # [id number]
[2022-02-05] MEDS ORDERED: PANT20TA2 PO (21:15)
[2022-02-05 21:18] VITALS: BP 152/88
== END 2022-02-05 21:20 | disposition home or self-care (01) ==
LOC: EDUNIT# 18:53 → ER 18:56
DX: I71.40 Abdominal aortic aneurysm, without rupture, unspecified (principal); K30 Functional dyspepsia; Z90.49 Acquired absence of other specified parts of digestive tract; Z87.891 Personal history of nicotine dependence
CPT/HCPCS: 36415; 74177; 80053; 83690; 85025

== ENCOUNTER → 2022-04-21 | Outpatient (CLI) | payer MEDICARE, MEDICAID ==
[~2022-04-21] MED LIST changes: +HOLD METFORMIN - RECEIVED CONTRAST 20 ML VIAL IV SCH; +IOHEXOL 350 MG/ML 100 ML (OMNIPAQUE 350) VIAL IV ONE; +NS 100 ML (IVPB) BAG IV ONE; +PANT20TA2 PO
[2022-04-21 14:11] LABS: CREATININE SERUM 0.96 MG/DL (0.60-1.30)
--- NOTE | 2022-04-21 15:24 | Diagnostic Imaging Report ---
EXAMINATION: CT angiography of the chest. TECHNIQUE: Contrast-enhanced thin section helical images were obtained through the chest with intravenous contrast timed for the optimal opacification of the arterial structures per CTA protocol. Post-processing, reconstructions and interpretation of angiographic images of the vessels was performed. 3D MIP reconstructions were performed and reviewed. All CT scans use one or more of the following dose optimizing techniques: Automated exposure control, MA and/or KvP adjustment based on a patient size and exam type, or iterative reconstruction. HISTORY: Aortic aneurysm. COMPARISON: None available. FINDINGS: The ascending aorta is normal in caliber. Proximal arch is normal in caliber. The proximal descending aorta measures 3.8 x 4.0 cm. The mid descending aorta measures 4.5 x 4.3 cm. The aorta at the diaphragmatic hiatus measures 4.0 x 4.0 cm. The upper abdominal aorta measures 5.6 x 5.5 cm. There is a short segment dissection in the mid descending aorta. There is mural thrombus in the upper abdominal aneurysm. No leakage of contrast is seen. There is no edema or pneumonia. No pleural effusion. No pneumothorax. No suspicious nodules. There is no axillary or supraclavicular lymphadenopathy. There is no mediastinal lymphadenopathy. Heart size is normal. There are no coronary artery calcifications. No pericardial effusion. Limited views of the upper abdomen show changes of cholecystectomy. There are no suspicious osseous lesions. IMPRESSION: 1. Descending thoracic aortic aneurysm beginning distal to the arch and ending in the upper abdomen. 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 Dictated by: Dictated on workstation # [id number]
== END ==
LOC: RAD 13:26
PROVIDERS: ATTEND Nurse Practitioner
DX: I71.23 Aneurysm of the descending thoracic aorta, without rupture (principal); I10 Essential (primary) hypertension; F17.228 Nicotine dependence, chewing tobacco, with other nicotine-induced disorders
CPT/HCPCS: 36415; 71275; 82565; 84520

== ENCOUNTER → 2022-08-10 | Emergency (ER) | payer MEDICARE, MEDICAID ==
[~2022-08-10] MED LIST changes: -HOLD METFORMIN - RECEIVED CONTRAST 20 ML VIAL IV SCH; -IOHEXOL 350 MG/ML 100 ML (OMNIPAQUE 350) VIAL IV ONE; -NS 100 ML (IVPB) BAG IV ONE
== END | disposition left against medical advice (07) ==
LOC: EDUNIT# 20:06 → ER 20:08
DX: Z53.21 Procedure and treatment not carried out due to patient leaving prior to being seen by health care provider (principal)